=== PATIENT | male | born 1980 | race Caucasian/White ===

== ENCOUNTER → 2016-05-30 | Outpatient (CLI) | payer BC ==
--- NOTE | 2016-05-30 12:49 | CT ---
EXAM DESCRIPTION: Head w/wo Contrast CLINICAL HISTORY: 36 years, Male, HEADACHE COMPARISON: None TECHNIQUE: Head CT was performed with and without IV contrast. This exam was performed according to our departmental dose-optimization program, which includes automated exposure control, adjustment of the mA and/or kV according to patient size and/or use of iterative reconstruction technique. FINDINGS: Pre-IV contrast images show no acute intracranial hemorrhage. There is no midline shift or other mass effect. The ventricles and basilar cisterns are well maintained. Burton-white matter differentiation is intact. Visualized paranasal sinuses and orbits are unremarkable. There is no calvarial fracture. Postcontrast images show only physiologic vascular enhancement. IMPRESSION: Negative exam. Electronically signed by: Artemio Joe MD 05/30/2016 12:49 PM CDT
== END | disposition home or self-care (01) ==
LOC: CT 08:00
PROVIDERS: ATTEND Family Medicine
DX: G44.52 New daily persistent headache (NDPH) (principal)

== ENCOUNTER 2019-05-10 | Emergency (ER) | payer BC | END 2019-05-10 18:40 | disposition home or self-care (01) | DX: S90.32XA Contusion of left foot, initial encounter (principal); W20.8XXA Other cause of strike by thrown, projected or falling object, initial encounter; Y92.9 Unspecified place or not applicable ==

== ENCOUNTER → 2020-03-13 | Outpatient (CLI) | payer BC | LOC: YCFC.O 15:06 | PROVIDERS: ATTEND Nurse Practitioner Family | DX: Z20.828 Contact with and (suspected) exposure to other viral communicable diseases (principal) ==

== ENCOUNTER → 2020-03-23 | Outpatient (CLI) | payer BC | LOC: YCFC.O 14:44 | PROVIDERS: ATTEND Nurse Practitioner | DX: Z20.828 Contact with and (suspected) exposure to other viral communicable diseases (principal) ==

== ENCOUNTER → 2020-04-02 | Outpatient (CLI) | payer BC ==
--- NOTE | 2020-04-02 16:50 | RAD ---
EXAM DESCRIPTION: Chest,2 Views CLINICAL HISTORY: dyspnea COMPARISON: April 29, 2015 FINDINGS: Two-view chest x-ray shows cardiomediastinal silhouette and pulmonary vasculature to be within normal limits. The lungs are normally aerated and clear. Costophrenic angles are sharp. Osseous structures are unremarkable IMPRESSION: No radiographic evidence of acute cardiopulmonary disease. Electronically signed by: Tank Spencer MD 04/02/2020 4:48 PM [facility]
== END ==
LOC: YCFC.O 15:44
PROVIDERS: ATTEND Nurse Practitioner
DX: U07.1 COVID-19 (principal); R06.00 Dyspnea, unspecified